=== PATIENT | female | born 1980 | race Two or more races ===

== ENCOUNTER 2017-04-24 10:19 | Emergency (ER) | payer SELFPAY ==
--- NOTE | 2017-04-24 10:32 | ER Document Report ---
ED GI/ - General Chief Complaint: Pelvic Pain Stated Complaint: ABDOMINAL PAIN Time Seen by Provider: 04/24/17 10:31 Mode of Arrival: Ambulatory Information source: Patient TRAVEL OUTSIDE OF THE [place] IN LAST 30 DAYS: No - HPI Patient complains to provider of: Pelvic pain Onset: This morning - 8 AM Timing/Duration: Sudden, Constant - GRADUALLY WORSENING Quality of pain: Other - CAN'T DESCRIBE Severity at maximum: Severe Severity in ED: Severe Context: Other - LMP 03/07 Location: Pelvis Vaginal bleeding (Compared to normal period): Heavier Menstrual period history: Missed LMP: 03/07 Sexual history: Active Similar symptoms previously: Yes - W/ ECTOPIC PREG. Recently seen / treated by doctor: No - Related Data Allergies/Adverse Reactions: aspirin Allergy (Verified 04/24/17 11:28) Home Medications: Current Home Medications No Home Medications 04/24/17 [History] Past Medical History - General Information source: Patient, Relative Last Menstrual Period: 03/07 - Social History Smoking Status: Unknown if Ever Smoked Frequency of alcohol use: None Drug Abuse: None Lives with: Spouse/Significant other Family History: None Patient has suicidal ideation: No Patient has homicidal ideation: No - Medical History Medical History: Negative Renal/ Medical History: Reports: Hx Ectopic . Denies: Hx Peritoneal Dialysis Psychiatric Medical History: Reports: None Past Surgical History: Reports: Other - LAPAROSCOPY FOR TREATMENT OF ECTOPIC PREG. Review of Systems - Review of Systems -: Yes ROS unobtainable due to patient's medical condition - PATIENT IN MUCH DISTRESS DUE TO SEVERE PAIN Physical Exam - Vital signs Vitals: Temp Pulse Resp BP Pulse Ox 98.2 F 86 18 130/66 H 100 04/24/17 10:22 04/24/17 10:22 04/24/17 10:22 04/24/17 10:22 04/24/17 10:22 Interpretation: Normal. No: Hypotensive, Hypertensive, Tachycardic, Tachypneic , Febrile - General General appearance: Alert In distress: Severe - HEENT Head: Normocephalic Eyes: Normal Conjunctiva: Normal Ears: Normal Nasal: Normal Mouth/Lips: Normal Mucous membranes: Normal - Respiratory Respiratory status: No respiratory distress Breath sounds: Normal - Cardiovascular Rhythm: Regular Heart sounds: Normal auscultation Murmur: No - Abdominal Inspection: Normal Distension: No distension Bowel sounds: Hypoactive - Genitourinary External exam: Normal Speculum exam: Cervix closed, Other - CLOTTED BLOOD IN CERVIX. No: Products of conception Vaginal bleeding: Moderate Bimanuel exam: Cervical motion tender, Uterus enlarged - Extremities General upper extremity: Normal inspection General lower extremity: Normal inspection - Neurological Neuro grossly intact: Yes Cognition: Normal - Psychological Associated symptoms: Normal affect, Normal mood - Skin Skin Temperature: Warm Skin Moisture: Dry Skin Color: Normal Skin Turgor: Elastic Course - Vital Signs Vital signs: Temp Pulse Resp BP Pulse Ox 98.2 F 86 22 H 108/82 100 04/24/17 10:22 04/24/17 10:22 04/24/17 15:00 04/24/17 14:47 04/24/17 15:00 - Laboratory Result Diagrams: 04/24/17 14:40 04/24/17 10:43 Laboratory results interpreted by me: 04/24/17 04/24/17 04/24/17 10:43 10:43 10:43 RBC Hgb Hct 35.5 L RDW 19.4 H Eosinophils % 9.7 H Absolute Eosinophils 0.8 H Serum HCG, Qual POSITIVE H Beta HCG, Quant 4646.10 H 04/24/17 14:40 RBC 3.59 L Hgb 10.4 L Hct 31.2 L RDW 18.8 H Eosinophils % Absolute Eosinophils Serum HCG, Qual Beta HCG, Quant - Consults DR. QUACH Time consulted: 12:30 Reason for consultation: 04/24/17 12:48 RECOMMENDS PAIN MANAGEMENT, OBSERVATION, F/U IN OFFICE. CALL IF COMPLICATIONS ARISE. Consulted provider: follow-up in office Discharge - Discharge Clinical Impression: Threatened in first trimester Condition: Stable Disposition: HOME, SELF-CARE Instructions: Threatened Miscarriage ([facility]), Bleeding During Early ( [facility]) Additional Instructions: REST, DRINK PLENTY OF FLUIDS. YOU MAY TAKE TYLENOL (ACETAMINOPHEN) FOR PAIN IF NEEDED. FOLLOW UP TOMORROW (TUESDAY) WITH [facility], CALL AFTER 8 A.M. FOR APPOINTMENT TIME. RETURN TO E.R. IF YOUR CONDITION WORSENS IN ANY WAY. Referrals: ROSIE QUACH DO [[facility]] - Follow up tomorrow
[2017-04-24] MEDS ORDERED: ONDANSETRON HCL INJ/PF 4 MG/2 ML SDV IV ONE (10:38)
[2017-04-24] MEDS ORDERED: FENTANYL CITRATE INJ/PF 100 MCG/2 ML AMPUL IV ONE ×2 (10:39→11:42)
[2017-04-24] MEDS ORDERED: NORMAL SALINE 1000 ML 1,000 ML IV PRN (10:39)
[2017-04-24 10:58] LABS: ABSOLUTE BASOPHILS # (AUTO) 0.1 10^3/uL (0.0-0.2); ABSOLUTE EOSINOPHILS # (AUTO) 0.8 10^3/uL (0.0-0.6); ABSOLUTE LYMPHOCYTES (AUTO) 1.8 10^3/uL (0.5-4.7); ABSOLUTE MONOCYTES (AUTO) 0.5 10^3/uL (0.1-1.4); ABSOLUTE NEUT (AUTO) 4.9 10^3/uL (1.7-8.2); BASOPHILS % (AUTO) 0.9 % (0-2); EOSINOPHILS % (AUTO) 9.7 % (0-6); HEMATOCRIT 35.5 % (36.0-47.0); HGB HCT DIFFERENCE 0.5; MEAN CORPUSCULAR HEMOGLOBIN 28.9 pg (27.0-33.4); MEAN CORPUSCULAR HGB CONC 33.9 g/dL (32.0-36.0); MEAN CORPUSCULAR VOLUME 85 fl (80-97); MONOCYTES % (AUTO) 5.7 % (3-13); RED BLOOD COUNT 4.16 10^6/uL (3.72-5.28); RED CELL DISTRIBUTION WIDTH 19.4 % (11.5-14.0); SEGMENTED NEUTROPHILS % (AUTO) 61.7 % (42-78)
[2017-04-24 11:14] LABS: ALANINE AMINOTRANSFERASE 33 U/L (9-52); ALBUMIN 4.5 g/dL (3.5-5.0); ALKALINE PHOSPHATASE 55 U/L (38-126); ANION GAP 12 (5-19); ASPARTATE AMINO TRANSFERASE 25 U/L (14-36); BILIRUBIN,DIRECT 0.3 mg/dL (0.0-0.4); BILIRUBIN,TOTAL 0.4 mg/dL (0.2-1.3); BLOOD UREA NITROGEN 12 mg/dL (7-20); CALCIUM 9.8 mg/dL (8.4-10.2); CARBON DIOXIDE 23 mmol/L (22-30); CHLORIDE 106 mmol/L (98-107); CREATININE RESULT 0.57 mg/dL (0.52-1.25); GLUCOSE 94 mg/dL (75-110); POTASSIUM 3.9 mmol/L (3.6-5.0); SODIUM 141.1 mmol/L (137-145); TOTAL PROTEIN 7.8 g/dL (6.3-8.2)
--- NOTE | 2017-04-24 11:32 | RADIOLOGY REPORT (SQ) ---
EXAM DESCRIPTION: U/S OB TRANSVAGINAL W/O DOP COMPLETED DATE/TIME: 04/24/2017 11:18 am REASON FOR STUDY: AMENORRHEA, PELVIC PAIN, R/O ECTOPIC COMPARISON: None. TECHNIQUE: Transvaginal static and realtime grayscale images acquired of the pelvis. Additional hansel cted spectral and color Doppler images recorded. All images stored on PACs. bHCG: Not available LIMITATIONS: None. FINDINGS: UTERUS: No masses. No anomalies. GESTATIONAL SAC: Possible gestational sac is identified in the lower uterine segment. YOLK SAC: Not visualized POLE: Not visualized RIGHT ADNEXA: Right ovary was not visualized. No adnexal free fluid. No adnexal masses. LEFT ADNEXA: Left ovary was not visualized. No adnexal free fluid. No adnexal masses. FREE FLUID: None. OTHER: No other significant finding. IMPRESSION: POSSIBLE EARLY INTRAUTERINE . CONSIDER F/U BHCG AND/OR ULTRASOUND FOR VERIFICATION. Trimester of : First - 0 to 13 weeks. TECHNICAL DOCUMENTATION: JOB ID: [id number]- All Rights Reserved
[2017-04-24] MEDS ORDERED: NORMAL SALINE 1000 ML 500 ML IV ONE (13:29)
[2017-04-24 14:55] LABS: HEMATOCRIT 31.2 % (36.0-47.0); HEMOGLOBIN 10.4 g/dL (12.0-15.5); MEAN CORPUSCULAR HEMOGLOBIN 28.9 pg (27.0-33.4); MEAN CORPUSCULAR HGB CONC 33.2 g/dL (32.0-36.0); MEAN CORPUSCULAR VOLUME 87 fl (80-97); RED BLOOD COUNT 3.59 10^6/uL (3.72-5.28); RED CELL DISTRIBUTION WIDTH 18.8 % (11.5-14.0); WHITE BLOOD COUNT 7.7 10^3/uL (4.0-10.5)
[2017-04-24] MEDS ORDERED: ACETAMINOPHEN 325 MG TABLET PO ONE (14:55)
[2017-04-24 15:39] VITALS: BP 95/55
== END 2017-04-24 15:40 | disposition home or self-care (01) ==
LOC: ER 10:19
DX: O20.0 Threatened abortion (principal); O26.891 Other specified pregnancy related conditions, first trimester; R10.2 Pelvic and perineal pain; Z3A.01 Less than 8 weeks gestation of pregnancy; Z87.59 Personal history of other complications of pregnancy, childbirth and the puerperium; Z88.6 Allergy status to analgesic agent
CPT/HCPCS: 96376; 99284; 96361; 96374; 96375; 86900; 86901; 36415; 86850; 84702; 84703; 85025; 85027; 80053; 76817; J3010; J2405; J7030